=== PATIENT | male | born 1995 | race Hispanic/Latino ===

== ENCOUNTER 2018-08-27 18:43 | Emergency (ER) | payer OTHER ==
[2018-08-27] MEDS ORDERED: NORCO 5/325 PO STA (20:11)
[2018-08-27] MEDS ORDERED: AUGMENTIN 875 MG PO STA (20:11)
--- NOTE | 2018-08-27 20:19 | Emergency Department Report ---
ED ENT HPI - General Chief complaint: Dental/Oral Stated complaint: ORAL INFECTION MOUTH PAIN Time Seen by Provider: 08/27/18 19:22 Source: patient Mode of arrival: Ambulatory Limitations: No Limitations - History of Present Illness Initial comments: 23-year-old male to emergency department complaining of pain to the right lower molar region which has been off and on for the past few days. Pain is worse with chewing and palpation. Also noticed a whitish rash to his inside jaw which is removed with manipulation. No fever or chills. No dysphagia, no hemoptysis, no hematemesis, no abdominal pain or diarrhea. He denies trauma. MD complaint: tooth pain Severity: mild Consistency: constant Improves with: none Worsens with: none Associated Symptoms: toothache - Related Data Previous Rx's Medication Instructions Recorded Last Taken Type Acetaminophen/Codeine [Tylenol 1 tab PO Q6H PRN #14 tab 05/04/18 Unknown Rx /Codeine # 3 tab] Amoxicillin 500 mg PO TID #21 capsule 08/27/18 Unknown Rx Chlorhexidine Mouthwash [Peridex] 15 ml MM BID #473 bottle 08/27/18 Unknown Rx Lidocaine Viscous 2% 5 ml MM Q3H PRN #120 udc 08/27/18 Unknown Rx Allergies Allergy/AdvReac Type Severity Reaction Status Date / Time No Known Allergies Allergy Unverified 05/04/18 17:56 ED Dental HPI - General Chief complaint: Dental/Oral Stated complaint: ORAL INFECTION MOUTH PAIN Time Seen by Provider: 08/27/18 19:22 Source: patient Mode of arrival: Ambulatory Limitations: No Limitations - Related Data Previous Rx's Medication Instructions Recorded Last Taken Type Acetaminophen/Codeine [Tylenol 1 tab PO Q6H PRN #14 tab 05/04/18 Unknown Rx /Codeine # 3 tab] Amoxicillin 500 mg PO TID #21 capsule 08/27/18 Unknown Rx Chlorhexidine Mouthwash [Peridex] 15 ml MM BID #473 bottle 08/27/18 Unknown Rx Lidocaine Viscous 2% 5 ml MM Q3H PRN #120 udc 08/27/18 Unknown Rx Allergies Allergy/AdvReac Type Severity Reaction Status Date / Time No Known Allergies Allergy Unverified 05/04/18 17:56 ED Review of Systems ROS: Stated complaint: ORAL INFECTION MOUTH PAIN Other details as noted in HPI Constitutional: denies: chills, fever Eyes: denies: eye pain, eye discharge, vision change ENT: dental pain. denies: ear pain, throat pain Respiratory: denies: cough, shortness of breath, wheezing Cardiovascular: denies: chest pain, palpitations Endocrine: no symptoms reported Gastrointestinal: denies: abdominal pain, nausea, diarrhea Genitourinary: denies: urgency, dysuria Musculoskeletal: denies: back pain, joint swelling, arthralgia Skin: denies: rash, lesions Neurological: denies: headache, weakness, paresthesias Psychiatric: denies: anxiety, depression Hematological/Lymphatic: denies: easy bleeding, easy bruising ED Past Medical Hx - Past Medical History Previous Medical History?: Yes Hx Psychiatric Treatment: Yes (depression,transgender on hormones-no surgery) - Surgical History Additional Surgical History: TONSILLECTOMY - Social History Smoking Status: Former Smoker Substance Use Type: Marijuana - Medications Home Medications: Home Medications Medication Instructions Recorded Confirmed Last Taken Type Acetaminophen/Codeine [Tylenol 1 tab PO Q6H PRN #14 tab 05/04/18 Unknown Rx /Codeine # 3 tab] Amoxicillin 500 mg PO TID #21 capsule 08/27/18 Unknown Rx Chlorhexidine Mouthwash [Peridex] 15 ml MM BID #473 bottle 08/27/18 Unknown Rx Lidocaine Viscous 2% 5 ml MM Q3H PRN #120 udc 08/27/18 Unknown Rx ED Physical Exam - General Limitations: No Limitations General appearance: alert, in no apparent distress - Head Head exam: Present: atraumatic, normocephalic - Eye Eye exam: Present: normal appearance - ENT ENT exam: Present: mucous membranes moist, other (cervical dental caries and some and some dental erosion and fractures noted. There is erythema to the adjacent right jugular gingival region and some minimal swelling. No oral thrush is is visualized. Normal Watkinson Fabiola's duct.) - Neck Neck exam: Present: normal inspection - Respiratory Respiratory exam: Present: normal lung sounds bilaterally. Absent: respiratory distress - Cardiovascular Cardiovascular Exam: Present: regular rate, normal rhythm. Absent: systolic murmur, diastolic murmur, rubs, gallop - GI/Abdominal GI/Abdominal exam: Present: soft, normal bowel sounds - Rectal Rectal exam: Present: deferred - Extremities Exam Extremities exam: Present: normal inspection - Back Exam Back exam: Present: normal inspection - Neurological Exam Neurological exam: Present: alert, oriented X3 - Psychiatric Psychiatric exam: Present: normal affect, normal mood - Skin Skin exam: Present: warm, dry, intact, normal color. Absent: rash ED Course Vital Signs 08/27/18 18:55 Temperature 98.8 F Pulse Rate 108 H Respiratory 18 Rate Blood Pressure 120/82 O2 Sat by Pulse 99 Oximetry Critical care attestation.: If time is entered above; I have spent that time in minutes in the direct care of this critically ill patient, excluding procedure time. ED Disposition Clinical Impression: Dentalgia Disposition: DC- TO HOME OR SELFCARE Is pt being admited?: No Does the pt Need Aspirin: No Condition: Stable Instructions: Dental Caries (ED), Toothache (ED) Prescriptions: Amoxicillin 500 mg PO TID #21 capsule Lidocaine Viscous 2% 5 ml MM Q3H PRN #120 udc PRN Reason: Pain, Moderate (4-6) Chlorhexidine Mouthwash [Peridex] 15 ml MM BID #473 bottle Referrals: NATALIE URBINA MD [Primary Care Provider] - 3-5 Days [facility] [Outside] - 3-5 Days
[2018-08-27 20:48] VITALS: BP 122/74
== END 2018-08-27 20:50 | disposition home or self-care (01) ==
LOC: ED 18:43
DX: K08.89 Other specified disorders of teeth and supporting structures (principal); F32.9 Major depressive disorder, single episode, unspecified; F12.10 Cannabis abuse, uncomplicated; Z90.89 Acquired absence of other organs; Z87.891 Personal history of nicotine dependence
CPT/HCPCS: 99282